=== PATIENT | male | born 1950 | race Caucasian/White ===

== ENCOUNTER 2016-09-21 08:51 | Day surgery (SDC) | payer MEDICARE ==
--- NOTE | ~2016-09-21 | EGD ---
EGD REPORT [facility] [address] [place] [id number] NAME: ELSIE PIRES : [birth year] STATUS : REG [facility]#: [id number] AGE: 65 ADM/REG DATE : 09/21/16 MR#: [id number] REPORT SERV DATE: 09/21/16 DICTATED BY: PEDRO LUIS LOPEZ DATE: 09/21/16 REPORT STATUS : Draft [facility]: [facility] DATE: 09/21/16 Endoscopy Center Patient Name: Elsie Pires Date of : 1950 Attending MD: PEDRO LUIS LOPEZ, Procedure Date No Time: 09/21/2016 Procedure: Colonoscopy Indications: High risk colon cancer surveillance: Personal history of colonic polyps Referring MD: Nadya Mendez Medicines: Monitored Anesthesia Care Complications: No immediate complications. Estimated blood loss: None. Procedure: Pre-Anesthesia Assessment: - ASA Grade Assessment: II - A patient with mild systemic disease. After I obtained informed consent, the scope was passed under direct vision. Throughout the procedure, the patient's blood pressure, pulse, and oxygen saturations were monitored continuously. The PCF [id number] was introduced through the anus and advanced to the cecum, identified by appendiceal orifice and ileocecal valve. The colonoscopy was performed without difficulty. The patient tolerated the procedure well. The quality of the bowel preparation was adequate. Findings: The perianal and digital rectal examinations were normal. Internal hemorrhoids were found during retroflexion and were Grade II (internal hemorrhoids that prolapse but reduce spontaneously). The exam was otherwise without abnormality on direct and retroflexion views. Impression: - Internal hemorrhoids. - The examination was otherwise normal on direct and retroflexion views. Recommendation: - Patient has a contact number available for emergencies. The signs and symptoms of potential delayed complications were discussed with the patient. Return to normal activities tomorrow. Written discharge instructions were provided to the patient. - Return to previous diet. - Continue present medications. - Repeat colonoscopy in 5 years for surveillance. EGD REPORT [address] [facility] [place]. [address] NAME: ELSIE PIRES : [birth year] STATUS : REG [facility]#: [id number] AGE: 65 ADM/REG DATE : 09/21/16 MR#: [id number] REPORT SERV DATE: 09/21/16 DICTATED BY: PEDRO LUIS LOPEZ DATE: 09/21/16 REPORT STATUS : Draft TRANSCRIBED BY: [employer] DATE: 09/21/16 Procedure Code(s): --- Professional --- 43642, Colonoscopy, flexible, proximal to splenic flexure; diagnostic, with or without collection of specimen(s) by brushing or washing, with or without colon decompression (separate procedure) Diagnosis Code(s): --- Professional --- K64.1, Second degree hemorrhoids Z86.010, Personal history of colonic polyps CPT copyright 2013 [employer]. All rights reserved. The codes documented in this report are preliminary and upon manager merchandising review may be revised to meet current compliance requirements. PEDRO LUIS LOPEZ, 09/21/2016 10:45 AM Number of Addenda: 0 Note Initiated On: 09/21/2016 10:12 AM [address] [facility] [place] [address]
[~2016-09-21 08:51] MED LIST: ASAB PO; FISH-EPA1000 MG PO; LEVOTHYROXIN75 MCG PO; NEUR100 PO; PRESERVISION A1 EAC1 PO; VITAMIN D31000 UNIT PO; ZETIA PO; [UNRECOGNIZED DRUG - OTHER]
== END 2016-09-21 23:59 | disposition home or self-care (01) ==
LOC: DMU 08:51
PROVIDERS: Internal Medicine Gastroenterology
PROC: 0DJD8ZZ Inspection of Lower Intestinal Tract, Via Natural or Artificial Opening Endoscopic (ICD-10-PCS; principal; 2016-09-21 11:00)
DX: Z12.11 Encounter for screening for malignant neoplasm of colon (principal); Z86.010 Personal history of colon polyps; K64.1 Second degree hemorrhoids; I10 Essential (primary) hypertension; E03.9 Hypothyroidism, unspecified; E78.00 Pure hypercholesterolemia, unspecified; Z91.041 Radiographic dye allergy status; Z88.8 Allergy status to other drugs, medicaments and biological substances; Z79.82 Long term (current) use of aspirin; Z79.899 Other long term (current) drug therapy